=== PATIENT | female | born 2005 | race Two or more races ===

== ENCOUNTER 2024-12-09 07:50 | Emergency (ER) | payer OTHER ==
[~2024-12-09] VITALS: Ht 149.9 cm; Wt 63.5 kg
[2024-12-09 10:41] LABS: BASO % 0.3 % (0.1-1.2); EOS # 0.11 (0.04-0.54); EOS % 1.7 % (0.7-7.0); LYMPH # 2.16 (1.18-3.74); LYMPH % 33.8 % (19.3-53.1); MEAN PLATELET VOLUME 11.70 fl (9.4-12.4); MONO # 0.40 (0.24-0.82); MONO % 6.3 % (4.7-12.5); NEUT # 3.70 (1.56-6.13); NEUT % 57.7 % (34.0-71.1); RED CELL DISTRIBUTION WIDTH 14.3 % (11.6-14.4)
[2024-12-09 11:10] LABS: ALT/SGPT 152 U/L (12-78); AST/SGOT 71 U/L (15-37); BILIRUBIN TOTAL 0.48 mg/dL (0.3-1.2); BUN CREA RATIO 12 (7.0-25.0); CREATININE SERUM 0.78 mg/dL (0.55-1.02); GFR 93.23; GLOBULINA 3.3 G/DL (2.4-3.5); GLUCOSE FASTING 99 mg/dL (65-100); OSMOLALITY SERUM 282 MOSM/KG (275-295)
[2024-12-09 11:12] LABS: HCG QUANTITATIVE < 1 mUI/mL (1-3)
[2024-12-09 11:34] LABS: URINE APPEARANCE Clear; URINE BILIRRUBIN Negative (NEGATIVE); URINE BLOOD Small; URINE COLOR Yellow; URINE GLUCOSE Negative (NEGATIVE); URINE KETONE Trace (NEGATIVE); URINE LEUKOCYTE Small; URINE NITRATE Negative; URINE PROTEIN Negative (NEGATIVE); URINE UROBILINOGEN 1.0 E.U./dl
[2024-12-09 11:37] LABS: URINE BACTERIA 1437.5 uL (0.0-1933); URINE EPITHELIAL CELLS 52.4 uL (0.0-38.8); URINE RBC 2.4 uL (0.0-20.8); URINE WBC 46.2 uL (0.0-23.2)
[2024-12-09 11:40] LABS: URINE CAST 0.14 uL (0.0-1.40)
== END 2024-12-09 13:02 | disposition home or self-care (01) ==
LOC: ER 07:50
PROVIDERS: General Practice
DX: R42 Dizziness and giddiness (principal)